=== PATIENT | female | born 1945 | race Caucasian/White ===

== ENCOUNTER 2020-03-03 08:07 | Day surgery (SDC) | payer MEDICARE ==
[~2020-03-03] VITALS: Ht 157.5 cm; Wt 41.3 kg
[~2020-03-03 08:07] MED LIST: ASPIR 8181 MG PO; BISOPROLOL FUMA10 MG PO; L-METHYLFOLATE7.5 M1 PO; NORVASC5 MG PO; OMEGA 3 1,0001 EACH PO; PERCOCET 5-3251 EACH PO; VITAMIN B125000 MCG PO; VITAMIN D3125 MC1
[2020-03-03] MEDS ORDERED: MAGNESIUM100 MG PO (08:42)
[2020-03-03] MEDS ORDERED: VITAMIN C250 M1 PO (08:42)
--- NOTE | 2020-03-03 10:25 | NUR ---
03/03/20 1025 Yolanda Hernandez 1020 PATIENT ARRIVES TO PACU UNRESPONSIVE TO PAIN.RESP EVEN AND UNLABORED, NC AT 3 LITERS. 1024 PATIENT CONTINUES TO BE UNRESPONSIVE TO PAIN. RESP EVEN AND UNLABORED, OXYGEN OFF.
--- NOTE | 2020-03-03 11:28 | NUR ---
CALL LIGHT WITHIN REACH. CONTINUOUS PULSE OXIMETER IN PLACE. PATIENT WILL ROUSE TO LOUD VOICE AND FALLS QUICKLY BACK TO SLEEP.
--- NOTE | 2020-03-03 12:15 | NUR ---
OXGYEN ALARMING AT 88% OXYGEN INCREASED TO 2L VIA NC. CONTINUOUS PULSE OXIMETER REMAINS IN PLACE.
--- NOTE | 2020-03-03 12:35 | NUR ---
PATIENT IS EASILY AROUSABLE AND TALKS WITH ME. HOB ELEVATED. OXYGEN TURNED OFF AT THIS TIME. COFFEE GIVEN. CALL LIGHT WITHIN REACH. CONTINUOUS PULSE OXIMETER IN PLACE.
--- NOTE | 2020-03-04 06:19 | OR ---
[facility] [address] [place], [place] [address] Signed DATE OF OPERATION: 03/03/2020 SURGEON: Fabi Mckeon MD PREOPERATIVE DIAGNOSIS: Guaiac-positive stool. POSTOPERATIVE DIAGNOSES: 1. 4 mm polyps at 7 and 10 cm. 2. 10 mm sessile polyp at 18 cm (tattoo/snare) and 7 mm polyp. 3. 15 mm pedunculated polyp at 50 cm (tattoo/snare). 4. 5 mm polyp at 65 cm. 5. 4 mm polyp mid right colon. 6. 10-12 mm sessile lesion, distal right colon (tattoo/clip). 7. 5 mm polyp, proximal transverse colon. PROCEDURE: Colonoscopy with snare polypectomy, hot biopsy, placement of clip and injection of tattoo x3. ESTIMATED BLOOD LOSS: None. INDICATIONS: Anjelica is a 74-year-old female, who has come to us for her initial colonoscopy. She had a positive Cologuard test. She said she has been by herself the last couple years and does not like to cook anymore. Consequently, she has lost quite a bit of weight. In fact, she is on the edge of cachexia. She told me there is no family history of colon cancer or polyps. She has no lower GI complaints. She does not see any obvious blood or black stool. She has been a long-time smoker. However, she walks two blocks to the post office once a week to greens picker her mail. She said she does just fine without any dyspnea on exertion or shortness of breath. In the office, I gave her a pamphlet on colonoscopy and we looked at that together along with the risks including, but not limited to gas bloating, crampy abdominal pain, bleeding, perforation requiring surgery, and missed diagnosis. We also discussed the need for IV conscious sedation. She had expressed understanding and wished to proceed. DESCRIPTION OF PROCEDURE: Anjelica was taken in the endoscopy suite and placed in the left lateral decubitus position. She was given a total of 6 mg of Versed and 150 mcg of fentanyl to cover the Electronically Signed By: FABI MCKEON MD 03/04/20 0619 PATIENT NAME: ANJELICA MACHADO OPERATIVE REPORT DATE OF : 45 REPORT #: [id number] PHYSICIAN: FABI MCKEON MD PCP: KVNG YOUNG DO REPORT IS CONFIDENTIAL AND NOT TO BE RELEASED WITHOUT AUTHORIZATION [facility] [address] [place], [place] [address] Signed case. A digital rectal exam was performed and this was unremarkable. She is quite thin. The adult colonoscope was introduced and advanced under direct visualization of camera up into the cecum itself. It took some additional sedation and abdominal compression in order to advance the scope. We could easily see the appendiceal orifice and the ileocecal valve. The scope was slowly withdrawn. The above-mentioned polyps were removed with the help of the hot biopsy and snare. We used a clip in the distal right colon to control just a small amount of bleeding that actually had stopped by the time we had the clip applied. We know that she is still taking her aspirin. We will check that area with abdominal x-ray in recovery room. We had placed tattoos of course at distal right colon areas. We saw no diverticulosis. Upon retroflexion of the scope, there was no additional pathology noted above the anal canal. After this, the gas was suctioned out and the colonoscope removed. Anjelica tolerated procedure quite well. RECOMMENDATIONS: I will see Anjelica back in my office in 7 to 14 days to review her results. We will follow up the abdominal x-ray for placement of clip. The sessile lesion in the distal right colon may very well require surgical resection. Fabi Mckeon MD ALB/MODL /[id number] cc: DO Fabi Vasquez MD Copies: KVNG YOUNG ANDREW L MD ~ Electronically Signed By: FABI MCKEON MD 03/04/20 0619 PATIENT NAME: ANJELICA MACHADO OPERATIVE REPORT DATE OF : 45 REPORT #: [id number] PHYSICIAN: FABI MCKEON MD PCP: KVNG YOUNG DO REPORT IS CONFIDENTIAL AND NOT TO BE RELEASED WITHOUT AUTHORIZATION
--- NOTE | 2020-03-08 15:59 | PATH ---
[facility] [address] [place], [place] [address] Signed SPECIMEN(S): A COLON POLYP AT 7 CM SPECIMEN(S): B COLON POLYPS AT 18 CM SPECIMEN(S): C COLON POLYP AT 50 CM SPECIMEN(S): D COLON POLYP AT 65 CM SPECIMEN(S): E MID ASCENDING POLYP SPECIMEN(S): F DISTAL ASCENDING POLYP SPECIMEN(S): G PROXIMAL TRANSVERSE POLYP SPECIMEN(S): H COLON POLYP AT 10 CM SPECIMEN SOURCE: A. COLON POLYP AT 7 CM B. COLON POLYPS AT 18 CM C. COLON POLYP AT 50 CM D. COLON POLYP AT 65 CM E. MID ASCENDING POLYP F. DISTAL ASCENDING POLYP G. PROXIMAL TRANSVERSE POLYP H. COLON POLYP AT 10 CM CLINICAL HISTORY: Positive Cologuard test. Postop: Multiple polyps, distal right colon tumor. Colonoscopy. MICROSCOPIC DESCRIPTION: Histologic sections of all submitted blocks are examined by light microscopy. These findings, together with the gross examination, support the pathologic diagnosis. FINAL PATHOLOGIC DIAGNOSIS: A. Colon, polyp at 7 cm, polypectomy: - Hyperplastic polyp. - Negative for dysplasia or malignancy. B. Colon, polyp at 18 cm, polypectomy: - Fragments of tubular adenoma; negative for high-grade dysplasia. - Hyperplastic polyp. - Negative for malignancy. C. Colon, polyp at 50 cm, polypectomy: - Tubulovillous adenoma with focal high-grade dysplasia. - Negative for invasive carcinoma. D. Colon, polyp at 65 cm, polypectomy: - Tubular adenoma. - Negative for high-grade dysplasia or malignancy. PATIENT NAME: GUIDO SANABRIA,JOSE DAVID M PATHOLOGY DATE OF : 45 REPORT #: [id number] PHYSICIAN: ARTURO CASON PCP: KVNG YOUNG DO REPORT IS CONFIDENTIAL AND NOT TO BE RELEASED WITHOUT AUTHORIZATION [facility] [address] [place], [place] [address] Signed E. Colon, mid ascending, polyp, polypectomy: - Colonic mucosa with no histopathologic abnormality. - Benign mucosal lymphoid aggregate present. - Negative for dysplasia or malignancy. F. Colon, distal ascending, polyp, polypectomy: - Fragments of tubular adenoma. - Negative for high-grade dysplasia or malignancy. G. Colon, proximal transverse, polyp, polypectomy: - Colonic mucosa with no histopathologic abnormality. - Negative for dysplasia or malignancy. H. Colon, polyp at 10 cm, polypectomy: - Fragments of hyperplastic polyp. - Negative for dysplasia or malignancy. NAL:cml:C2NR GROSS DESCRIPTION: Eight specimens are received in eight containers, labeled "SEQ." A. The specimen, labeled "SEQ,1," and designated on the requisition "colon polyp at 7 cm," is received in formalin and consists of one souza soft tissue fragment(s) that measure 0.3 cm in greatest dimension. The specimen is entirely submitted in cassette (A1). B. The specimen, labeled "SEQ, 2," and designated on the requisition "colon polyp 2 at 18 cm," is received in formalin and consists of multiple souza soft tissue fragment(s) that measure less than 0.1 up to 0.4 cm in greatest dimension. The specimen is entirely submitted in cassette (B1). C. The specimen, labeled "SEQ, three," and designated on the requisition "colon polyp at 50 cm," is received in formalin and consists of a 1.7 x 1.5 x 1.1 cm polypoid, souza-pink tissue piece. The resection margin is inked blue and the specimen is bivalved to reveal souza-white, glistening soft tissue. Also in the container are multiple souza soft tissue fragments from less than 0.1 up to the 0.9 cm in greatest dimension. The specimen is entirely submitted in two cassettes as follows: C1-bivalved polyp C2-remaining tissue D. The specimen, labeled "SEQ four," and designated on the requisition "colon polyp at 65 cm," is received in formalin and consists of one souza soft tissue fragment(s) that measure 0.2 cm in greatest dimension. The specimen is entirely submitted in cassette (D1). E. The specimen, labeled "SEQ, five," and designated on the requisition "mid ascending polyp," is received in formalin and consists of one elongated souza PATIENT NAME: JOSE DAVID MACHADO PATHOLOGY DATE OF : 45 REPORT #: [id number] PHYSICIAN: ARTURO CASON PCP: KVNG YOUNG DO REPORT IS CONFIDENTIAL AND NOT TO BE RELEASED WITHOUT AUTHORIZATION [address] [address] Signed soft tissue fragment(s) that measure 0.5 cm in greatest dimension. The specimen is entirely submitted in cassette (E1). F. The specimen, labeled "SEQ, six," and designated on the requisition "distal ascending polyp," is received in formalin and consists of multiple souza soft tissue fragment(s) that measure 0.1 up to 0.3 cm in greatest dimension. The specimen is entirely submitted in cassette (F1). G. The specimen, labeled "SEQ, seven," and designated on the requisition "proximal transverse polyp," is received in formalin and consists of one elongated souza soft tissue fragment(s) that measure 0.5 cm in greatest dimension. The specimen is entirely submitted in cassette (G1). H. The specimen, labeled "SEQ, eight," and designated on the requisition "colon polyp," is received in formalin and consists of three souza soft tissue fragment(s) that measure 0.2-0.3 cm in greatest dimension. The specimen is entirely submitted in cassette (H1). AI (under the direct supervision of a pathologist) The Gross Description was prepared using a voice recognition system. The report was reviewed for accuracy; however, sound-alike word errors, addition and/or deletions may occur. If there is any question about this report, please contact Client Services. PERFORMING LABORATORY: The technical component was performed by [facility], [address] [place] [address] (Special Education Paraeducator: Kiley Ayala MD; CLIA# [id number]). [place] [address] (CLIA# [id number]). Diagnostician: Alejandrina Ch MD Pathologist Electronically Signed 03/08/2020 Copies: ~ PATIENT NAME: JOSE DAVID MACHADO PATHOLOGY DATE OF : 45 REPORT #: [id number] PHYSICIAN: [facility] PCP: KVNG YOUNG DO REPORT IS CONFIDENTIAL AND NOT TO BE RELEASED WITHOUT AUTHORIZATION
== END 2020-03-03 13:25 | disposition home or self-care (01) ==
LOC: DS 08:07 → OPS 08:07 → DS 09:45 → OPS 13:25
PROVIDERS: Colon & Rectal Surgery
PROC: 0DBE8ZX Excision of Large Intestine, Via Natural or Artificial Opening Endoscopic, Diagnostic (ICD-10-PCS; 2020-03-03)
PROC: 0DBL8ZX Excision of Transverse Colon, Via Natural or Artificial Opening Endoscopic, Diagnostic (ICD-10-PCS; 2020-03-03)
PROC: 0DBE8ZZ Excision of Large Intestine, Via Natural or Artificial Opening Endoscopic (ICD-10-PCS; 2020-03-03)
PROC: 0DBK8ZX Excision of Ascending Colon, Via Natural or Artificial Opening Endoscopic, Diagnostic (ICD-10-PCS; principal; 2020-03-03 09:15)
DX: D12.2 Benign neoplasm of ascending colon (principal); D12.6 Benign neoplasm of colon, unspecified; K63.5 Polyp of colon; I25.10 Atherosclerotic heart disease of native coronary artery without angina pectoris; I12.9 Hypertensive chronic kidney disease with stage 1 through stage 4 chronic kidney disease, or unspecified chronic kidney disease; N18.3 Chronic kidney disease, stage 3 (moderate); M19.90 Unspecified osteoarthritis, unspecified site; E55.9 Vitamin D deficiency, unspecified; I42.8 Other cardiomyopathies; I70.1 Atherosclerosis of renal artery; F17.210 Nicotine dependence, cigarettes, uncomplicated; Z79.82 Long term (current) use of aspirin; Z79.899 Other long term (current) drug therapy; Z85.3 Personal history of malignant neoplasm of breast
CPT/HCPCS: 74018; 88305; 99153; G0500; J2250; J3010; J7121

== ENCOUNTER 2020-06-30 08:16 | Day surgery (SDC) | payer MEDICARE ==
[~2020-06-30] VITALS: Ht 157.5 cm; Wt 40.2 kg
[~2020-06-30 08:16] MED LIST changes: +MAGNESIUM100 MG PO; +VITAMIN C250 M1 PO
--- NOTE | 2020-06-30 10:50 | NUR ---
06/30/20 1050 Sheets,Meenu 1027 PT ARRIVED TO PACU ON 3L VIA NC, PT ASLEEP AND RESP EVEN AND UNLABROED. BP DECREASED AND FLUIDS INCREASED. 1037 PT WOKE TO TACTILE STIMULI AND REORIENTED TO PACU. PT EYES SLIGHLY OPEN AND THEN PT FALLS BACK TO SLEEP.
--- NOTE | 2020-06-30 12:00 | NUR ---
PT ARRIVED FROM PACU. REPORT RECIEVED FROM NEHEMIAH Slater RN. PT SLEEPING IN LOCKED AND LOWERED BED, SIDE RAILS UP, CALL LIGHT WITHIN REACH. NO FURTHER REQUESTS AT THIS TIME.
--- NOTE | 2020-06-30 12:50 | NUR ---
PT UP TO GET DRESSED WITHOUT COMPLICATIONS. PT WHEELED OUT OF UNIT. PT TRANSFERRED INDEPENDENTLY FROM WHEELCHAIR TO VEHICLE WITH NO COMPLICATIONS. FRIEND, STAR PROVIDED TRANSPORTATION.
--- NOTE | 2020-07-01 08:31 | OR ---
[facility] [address] [place], [place] [address] Signed DATE OF OPERATION: 06/30/2020 SURGEON: Fabi Mckeon MD PREOPERATIVE DIAGNOSES: 1. Personal history of colonic polyps, 03/03/2020. 2. Tattoos at 18 cm, 50 cm, distal right colon. POSTOPERATIVE DIAGNOSES: 1. 4 mm polyps x5 at 18 cm (tattoo). 2. Biopsy at 50 cm (tattoo). 3. 7 mm polyp at 55 cm. 4. 12 mm polyp at 85 cm/distal transverse colon. 5. 12-15 mm sessile polyp at distal right colon (tattoo). 6. Minimal internal hemorrhoids. PROCEDURES: Colonoscopy, snare polypectomy and hot biopsy. ESTIMATED BLOOD LOSS: None. INDICATIONS: Anjelica is a 74-year-old female, who came to us in February of this year for her colonoscopy regarding guaiac-positive stool. She had 9 polyps removed throughout the colon and rectum. She had a sessile polyp in the distal right colon was a bit difficult, so we left a tattoo in that area. We also left tattoos at 18 cm and at 50 cm. She had dysplastic cells at 50 cm and at 18 cm, she had an adenomatous polyp. I had reviewed all this with Anjelica in the office in detail. We know we have to go back and readdress her entire colon particularly in the distal right colon. She is quite aware of colonoscopy at this point. She understands there is risk including, but not limited to gas bloating, crampy abdominal pain, bleeding, perforation requiring surgery, and missed diagnosis. We also gone through our bowel prep line by line. We had marked the section to stop the aspirin 3 days prior to the procedure. Unfortunately, she did not do that on this occasion. She understands that it puts her to increased risk for bleeding. She tells me she no longer takes the oxycodone. She also understands the need for IV conscious sedation. She had expressed understanding and wished to proceed. DESCRIPTION OF PROCEDURE: Anjelica was taken into our endoscopy suite and placed in the left lateral decubitus Electronically Signed By: FABI MCKEON MD 07/01/20 0831 PATIENT NAME: ANJELICA MACHADO OPERATIVE REPORT DATE OF : 45 REPORT #: [id number] PHYSICIAN: FABI MCKEON MD PCP: KVNG YOUNG DO REPORT IS CONFIDENTIAL AND NOT TO BE RELEASED WITHOUT AUTHORIZATION [facility] [address] [place], [place] [address] Signed position. She is quite small at 5 feet 2 inches, 88 pounds with a body mass index of 16. She was given a total of 5 mg of Versed and 100 mcg of fentanyl to cover the case. A digital rectal exam was performed and this was unremarkable. The adult colonoscope had been introduced and advanced all around into the cecum under direct visualization of camera with the help of abdominal compression and additional sedation. Her prep was quite good. The scope was slowly withdrawn. We could easily see the appendiceal orifice and the ileocecal valve. Once again, she has an obvious tattoo in the distal right colon and a sessile polyp probably 12 to 15 mm across. We took out at least 3 areas of that with our snare and reduced it significantly. There is probably a little bit remaining, but at that point, we did not want to proceed any further for fear of perforation of bowel. She is a little bit under nourished and her bowel is a little bit thin. As we came into the distal transverse colon, we used a hot biopsy forceps at 85 cm. Because of the way that polyp set on the bowel while we could not use our snare for fear of perforation and then back at 55 cm, there was a sessile polyp, which we did remove with the snare and that worked out nicely. We saw a polyp back at 50 cm and it appeared quite healthy. We went and took a biopsy along the edge of that polyp for pathologic review and then once we got back down to 18 cm in her distal sigmoid colon, she did have a tattoo and she had at least 4 small hyperplastic appearing polyps, one next the tattoo and 3 or 4 just distal to tattoo, all were removed easily with hot biopsy forceps and placed into the same canister. She has no diverticulosis. Upon retroflexion of scope in the rectum, she has very very minimal internal hemorrhoid tissue. After this, the gas was suctioned out and the colonoscope removed. Anjelica tolerated the procedure quite well. RECOMMENDATIONS: I will see Anjelica back in my office in 7 to 14 days to review her results. She might consider one further colonoscopy particularly with respect to the polyp in the distal right colon and in the distal transverse colon 85 cm. However, we are unable to clear these polyps without perforating the colon, she is going to need a right colectomy and possibly even an extended right colectomy. Fabi Mckeon MD ALB/MODL /[id number] Electronically Signed By: FABI MCKEON MD 07/01/20 0831 PATIENT NAME: ANJELICA MACHADO OPERATIVE REPORT DATE OF : 45 REPORT #: [id number] PHYSICIAN: FABI MCKEON MD PCP: KVNG YOUNG DO REPORT IS CONFIDENTIAL AND NOT TO BE RELEASED WITHOUT AUTHORIZATION [address], [place] [address] Signed cc: BRIT Middleton MD Arian Kargar, DO Fabi Mckeon MD Copies: ESE DOMINGUEZ MD, ARIAN DO BOWER, ANDREW L MD ~ Electronically Signed By: FABI MCKEON MD 07/01/20 0831 PATIENT NAME: ANJELICA MACHADO OPERATIVE REPORT DATE OF : 45 REPORT #: [id number] PHYSICIAN: FABI MCKEON MD PCP: KVNG YOUNG DO REPORT IS CONFIDENTIAL AND NOT TO BE RELEASED WITHOUT AUTHORIZATION
--- NOTE | 2020-07-01 13:37 | PATH ---
[facility] [address] [facility] [place] [address] Signed SPECIMEN(S): A COLON POLYP AT 18 CM SPECIMEN(S): B COLON BIOPSY AT 50 CM SPECIMEN(S): C COLON POLYP AT 55 CM SPECIMEN(S): D DISTAL TRANSVERSE POLYP AT 85 CM SPECIMEN(S): E DISTAL ASCENDING POLYP SPECIMEN SOURCE: A. COLON POLYP AT 18 CM B. COLON BIOPSY AT 50 CM C. COLON POLYP AT 55 CM D. DISTAL TRANSVERSE POLYP AT 85 CM E. DISTAL ASCENDING POLYP CLINICAL HISTORY: History dysplastic polyp, sessile polyp in distal right colon. Post: Colon polyps, internal hemorrhoids. Colonoscopy. MICROSCOPIC DESCRIPTION: Histologic sections of all submitted blocks are examined by light microscopy. These findings, together with the gross examination, support the pathologic diagnosis. FINAL PATHOLOGIC DIAGNOSIS: A. Colon, 18 cm, polypectomy: - Tubular adenoma. - Hyperplastic polyp. B. Colon, 50 cm, biopsy: - Colonic mucosa with no significant pathologic changes. C. Colon, 55 cm, polypectomy: - Tubular adenoma. D. Colon, distal transverse at 85 cm, polypectomy: - Sessile serrated polyp. E. Colon, distal ascending, polypectomy: - Tubular adenoma. BRP:cml:C2NR GROSS DESCRIPTION: Five specimens are received in five containers, labeled "SE." A. The specimen, labeled "SE," and designated on the requisition "colon polyp at 18 cm," is received in formalin and consists of five fragments of pink-souza tissue (0.9 x 0.7 x 0.2 cm in aggregate). The specimen is submitted entirely in cassette (A1). PATIENT NAME: JOSE DAVID MACHADO PATHOLOGY DATE OF : 45 REPORT #: [id number] PHYSICIAN: ARTURO CASON PCP: KVNG YOUNG DO REPORT IS CONFIDENTIAL AND NOT TO BE RELEASED WITHOUT AUTHORIZATION [facility] [address] [place], [place] [address] Signed B. The specimen, labeled "SE," and designated on the requisition "colon biopsy at 50 cm," is received in formalin and consists of one fragment of pink-souza tissue (0.2 x 0.2 x 0.2 cm). The specimen is submitted entirely in cassette (B1). C. The specimen, labeled "SE," and designated on the requisition "colon polyp at 55 cm," is received in formalin and consists of one fragment of pink-souza tissue (0.3 x 0.2 x 0.2 cm). The specimen is submitted entirely in cassette (C1). D. The specimen, labeled "SE," and designated on the requisition "distal transverse polypectomy at 85 cm," is received in formalin and consists of six fragments of pink-souza tissue (0.8 x 0.7 x 0.3 cm in aggregate). The specimen is submitted entirely in cassette (D1). E. The specimen, labeled "SE," and designated on the requisition "distal ascending colon polypectomy," is received in formalin and consists of multiple fragments of pink-souza tissue (1.7 x 1.0 x 0.2 cm in aggregate). The specimen is submitted entirely in cassette (E1). AC (under the direct supervision of a pathologist) The Gross Description was prepared using a voice recognition system. The report was reviewed for accuracy; however, sound-alike word errors, addition and/or deletions may occur. If there is any question about this report, please contact Client Services. PERFORMING LABORATORY: The technical component was performed by [facility], [address] [place] [id number] (Software Firmware Engineer: Kiley Ayala MD; CLIA# [id number]). [facility], [address] [place] [address] (CLIA# [id number]). Diagnostician: Kemar Smith MD Pathologist Electronically Signed 07/01/2020 Copies: ~ PATIENT NAME: JOSE DAVID MACHADO PATHOLOGY DATE OF : 45 REPORT #: [id number] PHYSICIAN: ARTURO CASON PCP: KVNG YOUNG DO REPORT IS CONFIDENTIAL AND NOT TO BE RELEASED WITHOUT AUTHORIZATION
== END 2020-06-30 12:55 | disposition home or self-care (01) ==
LOC: DS 08:16 → OPS 08:16 → DS 09:45 → OPS 12:55
PROVIDERS: ATTEND Colon & Rectal Surgery
PROC: 0DBL8ZX Excision of Transverse Colon, Via Natural or Artificial Opening Endoscopic, Diagnostic (ICD-10-PCS; 2020-06-30)
PROC: 0DBN8ZX Excision of Sigmoid Colon, Via Natural or Artificial Opening Endoscopic, Diagnostic (ICD-10-PCS; 2020-06-30)
PROC: 0DBF8ZX Excision of Right Large Intestine, Via Natural or Artificial Opening Endoscopic, Diagnostic (ICD-10-PCS; 2020-06-30)
PROC: 0DBK8ZX Excision of Ascending Colon, Via Natural or Artificial Opening Endoscopic, Diagnostic (ICD-10-PCS; principal; 2020-06-30 09:45)
DX: D12.3 Benign neoplasm of transverse colon (principal); D12.5 Benign neoplasm of sigmoid colon; D12.2 Benign neoplasm of ascending colon; K64.8 Other hemorrhoids; I25.10 Atherosclerotic heart disease of native coronary artery without angina pectoris; I12.9 Hypertensive chronic kidney disease with stage 1 through stage 4 chronic kidney disease, or unspecified chronic kidney disease; N18.30 Chronic kidney disease, stage 3 unspecified; E55.9 Vitamin D deficiency, unspecified; M19.90 Unspecified osteoarthritis, unspecified site; F17.210 Nicotine dependence, cigarettes, uncomplicated; Z86.010 Personal history of colon polyps; Z79.899 Other long term (current) drug therapy; Z79.82 Long term (current) use of aspirin
CPT/HCPCS: 99153; G0500; J2250; J3010; J7121

== ENCOUNTER 2020-09-29 07:57 | Day surgery (SDC) | payer MEDICARE ==
[~2020-09-29] VITALS: Ht 157.5 cm; Wt 89.5 kg
--- NOTE | 2020-09-29 09:31 | NUR ---
09/29/20 0930 Josseline Villafuerte 0958- PT ARRIVES TO PACU AROUSABLE TO VOICE, VERY DROWSY. PT DOES NOT ANSWER QUESTIONS AND FALLS RIGHT BACK TO SLEEP WHEN NOT BEING STIMULATED. RESP EVEN AND UNLABORED. OXYGEN SAT MID TO HIGH 90'S ON 3L VIA NC.
--- NOTE | 2020-09-30 07:51 | OR ---
[facility] [address], [place] [address] Signed DATE OF OPERATION: 09/29/2020 SURGEON: Fabi Mckeon MD PREOPERATIVE DIAGNOSES: 1. Personal history of colonic polyps. 2. Tattoos in distal right colon, 50 cm and 15 cm. POSTOPERATIVE DIAGNOSES: 1. Tattoos in distal right colon, 50 cm and 15 cm. 2. 5 mm polyp at 70 cm. 3. 4 x 8 mm polyp, distal right colon (clip). 4. 4 mm polyp at 25 cm (distal sigmoid colon). 5. 4 mm polyp at 15 cm (distal sigmoid colon). PROCEDURE: Colonoscopy with hot biopsy and clip in distal right colon. ESTIMATED BLOOD LOSS: None. INDICATIONS: Anjelica is a 74-year-old female, who presents for her 3rd colonoscopy over several months. She had multiple polyps removed throughout the colon and rectum. Her most difficult polyp was in the distal right colon. We left a tattoo in the distal right colon as well as 50 cm and 15 cm. That polyp in the distal right colon, a sessile multi-lobulated. It has been quite difficult to remove thus far. Fortunately, all the tissues come back adenomatous. She is very aware that it may or may not need surgery depending on today's results. She is very familiar with colonoscopy. She understands there is risk including, but not limited to gas bloating, crampy abdominal pain, bleeding, perforation requiring surgery, and missed diagnosis. She also understands the need for IV conscious sedation. She had expressed understanding and wished to proceed. PROCEDURE NOTE: Anjelica was taken into our endoscopy suite and placed in the left lateral decubitus position. She was given a total of 4 mg of Versed and 100 mcg of fentanyl to cover the case. A digital rectal exam was performed and this was unremarkable. The adult colonoscope was introduced and advanced all around into the cecum under direct visualization of camera without difficulty. It took minimal abdominal compression in order to advance the scope. Her prep was quite excellent. We could easily see the Electronically Signed By: FABI MCKEON MD 09/30/20 0751 PATIENT NAME: ANJELICA MACHADO OPERATIVE REPORT DATE OF : 45 REPORT #: [id number] PHYSICIAN: FABI MCKEON MD PCP: KVNG YOUNG DO REPORT IS CONFIDENTIAL AND NOT TO BE RELEASED WITHOUT AUTHORIZATION [facility] [address], [place] [address] Signed appendiceal orifice and the ileocecal valve. The scope was then slowly withdrawn. We took pictures throughout for photodocumentation. The three tattoos mentioned above were all easily visualized and inspected quite thoroughly. We did find some remaining polyp in the distal right colon. On this occasion, we had an excellent view of the entire length of that polyp. It is probably 4 mm wide by 8 mm in length. We removed this sequentially with the help of several hot biopsy forceps. We then placed a clip in the mid portion of that polypectomy site. The scope was then further withdrawn and the remaining polyps had been removed easily with hot biopsy forceps. She had a few tiny very small 3 mm hyperplastic appearing polyps in the top of the rectum. They were easily cauterized with the tip of the hot biopsy forceps. We did not specifically see any diverticulosis on this occasion. The scope was then retroflexed in the rectum. There was no additional pathology noted above the anal canal. After this, the gas was suctioned out and colonoscope removed. Anjelica tolerated procedure quite well. RECOMMENDATIONS: I will see Anjelica back in my office in 7 to 14 days to review her results. It looks like we can repeat this colonoscopy somewhere between 12 and 18 months at this point. Fabi Mckeon MD ALB/MODL /[id number] cc: DO Fabi Vasquez MD Copies: KVNG YOUNG ANDREW L MD ~ Electronically Signed By: FABI MCKEON MD 09/30/20 0751 PATIENT NAME: ANJELICA MACHADO OPERATIVE REPORT DATE OF : 45 REPORT #: [id number] PHYSICIAN: FABI MCKEON MD PCP: KVNG YOUNG DO REPORT IS CONFIDENTIAL AND NOT TO BE RELEASED WITHOUT AUTHORIZATION
--- NOTE | 2020-10-04 14:51 | PATH ---
[facility] [address] [facility] [place] [address] Signed SPECIMEN(S): A DESCENDING COLON POLYP AT 70 CM SPECIMEN(S): B DISTAL ASCENDING COLON POLYP SPECIMEN(S): C SIGMOID POLYP AT 25 CM SPECIMEN(S): D SIGMOID POLYP AT 15 CM SPECIMEN SOURCE: A. DESCENDING COLON POLYP AT 70 CM B. DISTAL ASCENDING COLON POLYP C. SIGMOID POLYP AT 25 CM D. SIGMOID POLYP AT 15 CM CLINICAL HISTORY: History of polyps, adenomatous polyp distal right colon. MICROSCOPIC DESCRIPTION: Histologic sections of all submitted blocks are examined by light microscopy. These findings, together with the gross examination, support the pathologic diagnosis. FINAL PATHOLOGIC DIAGNOSIS: A. Colon, descending polyp at 70 cm, polypectomy: - Fragments of tubular adenoma. - Negative for high-grade dysplasia or malignancy. B. Colon, distal ascending polyp, polypectomy: - Fragments of serrated adenoma with low-grade dysplasia. - Negative for high-grade dysplasia or malignancy. C. Colon, sigmoid polyp at 25 cm, polypectomy: - Hyperplastic polyp. - Negative for dysplasia or malignancy. D. Colon sigmoid polyp at 15 cm, polypectomy: - Cauterized colonic mucosa with subtle hyperplastic features, favor hyperplastic polyp. - Negative for dysplasia or malignancy. COMMENT: As part of [facility] Quality Improvement Program, part B of this case was reviewed by another member of our pathology staff. Regarding specimen D: Multiple additional deeper levels were examined. The cautery artifact limits histologic interpretation. NAL:NRT:cml:C2NR GROSS DESCRIPTION: PATIENT NAME: ANJELICA FLORIAN PATHOLOGY DATE OF : 45 REPORT #: [id number] PHYSICIAN: ARTURO CASON PCP: KVNG YOUNG DO REPORT IS CONFIDENTIAL AND NOT TO BE RELEASED WITHOUT AUTHORIZATION [facility] [address] [place], [place] [address] Signed Four specimens are received in four containers, labeled ``Anjelica Florian. A. The specimen, labeled " Anjelica Florian, #1, and designated on the requisition "descending colon polyp at 70 cm," is received in formalin and consists of biopsy souza soft tissue fragment(s) that measure 0.4 and 0.4 cm in greatest dimension. The specimen is entirely submitted in cassette (A1). B. The specimen, labeled " Anjelica Florian, #2, and designated on the requisition "ascending/right colon distal polyp," is received in formalin and consists of 6 souza soft tissue fragment(s) that measure 0.2-0.5 cm in greatest dimension. The specimen is entirely submitted in cassette (B1). C. The specimen, labeled " Anjelica Florian, #3, and designated on the requisition "sigmoid polyp at 25 cm," is received in formalin and consists of 2 souza soft tissue fragment(s) that measure 0.2 and 0.2 cm in greatest dimension. The specimen is entirely submitted in cassette (C1). D. The specimen, labeled " Anjelica Florian, #4, and designated on the requisition "sigmoid at 15 cm," is received in formalin and consists of 1 souza soft tissue fragment that measures 0.2 cm in greatest dimension. The specimen is entirely submitted in cassette (D1). FB (under the direct supervision of a pathologist) The Gross Description was prepared using a voice recognition system. The report was reviewed for accuracy; however, sound-alike word errors, addition and/or deletions may occur. If there is any question about this report, please contact Client Services. PERFORMING LABORATORY: The technical component was performed by [facility], [address] [place] [id number] ([employer]: Kiley Ayala MD; CLIA# [id number]). [facility], [address] [place] [id number] (CLIA# [id number]). Diagnostician: Alejandrina Ch MD Pathologist Electronically Signed 10/04/2020 Copies: PATIENT NAME: ANJELICA FOLRIAN PATHOLOGY DATE OF : 45 REPORT #: [id number] PHYSICIAN: ARTURO CASON PCP: KVNG YOUNG DO REPORT IS CONFIDENTIAL AND NOT TO BE RELEASED WITHOUT AUTHORIZATION [facility] [address] [place], [place] [address] Signed ~ PATIENT NAME: ANJELICA FLORIAN PATHOLOGY DATE OF : 45 REPORT #: [id number] PHYSICIAN: ARTURO PATHOLOGY PCP: KVNG YOUNG DO REPORT IS CONFIDENTIAL AND NOT TO BE RELEASED WITHOUT AUTHORIZATION
== END 2020-09-29 10:24 | disposition home or self-care (01) ==
LOC: OPS 07:57 → DS 07:57 → OPS 08:30 → DS 08:30 → OPS 10:24 → DS 10:30
PROVIDERS: ATTEND Colon & Rectal Surgery
PROC: 0DBN8ZX Excision of Sigmoid Colon, Via Natural or Artificial Opening Endoscopic, Diagnostic (ICD-10-PCS; 2020-09-29)
PROC: 0DBM8ZX Excision of Descending Colon, Via Natural or Artificial Opening Endoscopic, Diagnostic (ICD-10-PCS; 2020-09-29)
PROC: 0DBK8ZX Excision of Ascending Colon, Via Natural or Artificial Opening Endoscopic, Diagnostic (ICD-10-PCS; principal; 2020-09-29 08:30)
DX: D12.2 Benign neoplasm of ascending colon (principal); D12.4 Benign neoplasm of descending colon; D12.5 Benign neoplasm of sigmoid colon; J44.9 Chronic obstructive pulmonary disease, unspecified; I12.9 Hypertensive chronic kidney disease with stage 1 through stage 4 chronic kidney disease, or unspecified chronic kidney disease; F17.200 Nicotine dependence, unspecified, uncomplicated; N18.30 Chronic kidney disease, stage 3 unspecified; I42.9 Cardiomyopathy, unspecified; Z79.82 Long term (current) use of aspirin
CPT/HCPCS: 88305; 99153; G0500; J2250; J3010; J7121